=== PATIENT | female | born 1950 | race Caucasian/White ===

== ENCOUNTER → 2018-07-08 | Outpatient (CLI) | payer MEDICARE ==
[~2018-07-08] MED LIST: OMNIPAQUE 350 MG/ML, 75ML BOTTLE ONE
== END | disposition home or self-care (01) ==
LOC: CFH 10:42
PROVIDERS: ATTEND Nurse Practitioner Family
DX: R91.8 Other nonspecific abnormal finding of lung field (principal); J43.2 Centrilobular emphysema; J98.4 Other disorders of lung; D18.09 Hemangioma of other sites
CPT/HCPCS: 71260; Q9967

== ENCOUNTER → 2019-01-25 | Outpatient (CLI) | payer MEDICARE ==
[~2019-01-25] MED LIST changes: +OMNIPAQUE 350 MG/ML, 100ML BOTTLE ONE; -OMNIPAQUE 350 MG/ML, 75ML BOTTLE ONE
== END | disposition home or self-care (01) ==
LOC: CFH 13:11
PROVIDERS: ATTEND Nurse Practitioner Family
DX: R10.31 Right lower quadrant pain (principal); R10.32 Left lower quadrant pain; R11.0 Nausea; R19.7 Diarrhea, unspecified
CPT/HCPCS: 74177; Q9967

== ENCOUNTER → 2019-03-13 | Emergency (ER) | payer MEDICARE ==
[~2019-03-13] VITALS: Ht 157.5 cm; Wt 51.4 kg
[2019-03-13 12:02] LABS: BASOPHILS # (AUTO) 0.14 x10^3/uL (0-0.1); BASOPHILS % (AUTO) 2 % (0-1); EOSINOPHILS # (AUTO) 0.06 x10^3/uL (0-0.4); EOSINOPHILS % (AUTO) 1 % (1-7); LYMPHOCYTES # (AUTO) 2.16 x10^3/uL (1-3.4); LYMPHOCYTES % (AUTO) 24 % (22-44); MD NO; MEAN CORPUSCULAR HEMOGLOBIN 31.3 pg (27.0-34.8); MEAN CORPUSCULAR HGB CONC 33.4 g/dL (32.4-35.8); MEAN CORPUSCULAR VOLUME 93.7 fL (80-100); MONOCYTES # (AUTO) 0.64 x10^3/uL (0.2-0.8); MONOCYTES % (AUTO) 7 % (2-9); NEUTROPHILS # (AUTO) 6.18 x10^3/uL (1.8-6.8); NEUTROPHILS % (AUTO) 67 % (42-75); PLATELET COUNT 282 x10^3/uL (130-400); RED CELL DISTRIBUTION WIDTH 14.1 % (9.6-15.2)
--- NOTE | 2019-03-13 12:04 | NUR ---
TO ROOM FROM LOBBY. NAD.
--- NOTE | 2019-03-13 12:05 | NUR ---
PT WITH COMPLAINS OF LOWER ABD PAIN, N/D X 2 MONTHS. PT WAS TOLD BY HER PCP TO COME TO ER IF SYMPTOMS PERSISTED. 01/27 PT HAD DONE BLOOD WORK AND CT ABD AND STOOL SAMPLE ALL OF WHICH CAME BACK NORMAL. PT STATES HAVING 10-15 BM/DAY, ALL LIQUID. PT DENIES VOMITTING. NO CP, SOB.
--- NOTE | 2019-03-13 12:13 | NUR ---
PT AMBULATED TO BR WITH STEADY GAIT. WILL OBTAIN UA AND STOOL SAMPLE
[2019-03-13 12:14] LABS: ALANINE AMINOTRANSFERASE 23 U/L (12-78); ALBUMIN 4.2 g/dL (3.4-5.0); ANION GAP 7 mmol/L (5-15); CALCIUM 9.1 mg/dL (8.5-10.1); CHLORIDE 108 mmol/L (98-107); CREATININE 0.76 mg/dL (0.55-1.02)
[2019-03-13 12:17] LABS: ALKALINE PHOSPHATASE 113 U/L (45-117); BILIRUBIN,TOTAL 0.5 mg/dL (0.2-1.0); TOTAL PROTEIN 7.7 g/dL (6.4-8.2)
[2019-03-13 12:43] LABS: MICROSCOPIC NOT IND
[2019-03-13 12:50] LABS: CULTURE INDICATED? NO
--- NOTE | 2019-03-13 13:13 | NUR ---
PT DRESSED AND SITTING ON GURNEY. STATES SHE WANTS TO HOME BECUASE "THERE IS NOTHING YOU GUYS CAN DO FOR ME" WILL UPDATE
[2019-03-13 13:21] VITALS: BP 135/76
[2019-03-13 13:37] LABS: CLOSTRIDIUM DIFFICILE ANTIGEN NEGATIVE; CLOSTRIDIUM DIFFICILE TOXIN NEGATIVE (Negative)
[2019-03-13 13:43] LABS: CRYPTOSPORIDIUM ANTIGEN Negative (Negative)
== END | disposition home or self-care (01) ==
LOC: ED 12:44
DX: R19.7 Diarrhea, unspecified (principal); R10.84 Generalized abdominal pain; E78.00 Pure hypercholesterolemia, unspecified; E78.5 Hyperlipidemia, unspecified; I10 Essential (primary) hypertension; F17.200 Nicotine dependence, unspecified, uncomplicated; Z90.710 Acquired absence of both cervix and uterus
CPT/HCPCS: 36415; 80053; 81003; 85025; 87177; 87209; 87324; 87328; 87329; 89055; 99283

== ENCOUNTER → 2019-09-02 | Outpatient (CLI) | payer MEDICARE ==
[~2019-09-02] MED LIST changes: -OMNIPAQUE 350 MG/ML, 100ML BOTTLE ONE; +OMNIPAQUE 350 MG/ML, 75ML BOTTLE ONE
== END | disposition home or self-care (01) ==
LOC: CFH 08:55
PROVIDERS: ATTEND Nurse Practitioner Family
DX: J43.2 Centrilobular emphysema (principal); R91.8 Other nonspecific abnormal finding of lung field; Z72.0 Tobacco use
CPT/HCPCS: 71260; 82565; Q9967

== ENCOUNTER → 2020-12-24 | Outpatient (CLI) | payer MEDICARE | END | disposition home or self-care (01) | LOC: CFH 10:54 | PROVIDERS: ATTEND Family Medicine | DX: I65.23 Occlusion and stenosis of bilateral carotid arteries (principal); R91.8 Other nonspecific abnormal finding of lung field; J43.2 Centrilobular emphysema | CPT/HCPCS: 71250; 93880 ==